=== PATIENT | female | born 1985 | race Asian ===

== ENCOUNTER 2017-04-24 20:24 | Emergency (ER) | payer OTHER ==
[2017-04-24 20:34] VITALS: TEMP 98.4; BMI 37.8
[2017-04-24 20:35] VITALS: BP 147/76; PULSE 90
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
[2017-04-24 22:45] LABS: URINE APPEARANCE Clear; URINE BILIRUBIN Negative (NEGATIVE); URINE BLOOD 3+ (NEGATIVE); URINE GLUCOSE (UA) Negative (NEGATIVE); URINE KETONE Negative (NEGATIVE); URINE LEUK ESTERASE Negative (NEGATIVE); URINE NITRITE Negative (NEGATIVE); URINE PROTEIN Negative (NEGATIVE); URINE UROBILINOGEN 0.2 (0.2-1.0)
[2017-04-24 22:46] LABS: URINE COLOR YELLOW
[2017-04-24 22:52] LABS: URINE BACTERIA FEW /hpf (NEGATIVE); URINE WBC 0-2 (0-5)
[2017-04-24 23:09] LABS: BASO % 1.7 % (0-2.0); MEAN PLT VOLUME 8.9 fl (7.5-11.1)
[2017-04-24 23:17] LABS: EOS % 0.6 % (0-4.5); HEMATOCRIT 41.7 % (32.4-45.2); HEMOGLOBIN 13.9 GM/dl (10.7-15.3); LYMPH % 26.8 % (8-40); MCHC 33.3 g/dl (32.0-36.0); MEAN CELL VOLUME 81.2 fl (80-96); MONO % 4.4 % (3.8-10.2); NEUT % 66.5 % (42.8-82.8); PLATELET COUNT 331 K/MM3 (134-434); RBC 5.14 M/mm3 (3.60-5.2); RDW 12.3 % (11.6-15.6)
[2017-04-24 23:21] LABS: INR 1.15 (0.82-1.09); PROTHROMBIN TIME (PATIENT) 12.8 SEC (10.2-13.0)
[2017-04-24 23:25] LABS: ALBUMIN 4.4 g/dl (3.5-5.0); ALK PHOS 52 U/L (32-92); ANION GAP 7 (8-16); BILIRUBIN,TOTAL 1.2 mg/dl (0.2-1.0); BLOOD UREA NITROGEN 12 mg/dl (7-18); CALCIUM 9.2 mg/dl (8.4-10.2); CHLORIDE 106 mmol/L (98-107); CO2 25 mmol/L (22-28); GLUCOSE,RANDOM 93 mg/dl (74-106); POTASSIUM 4.1 mmol/L (3.5-5.1); SGOT/AST 35 U/L (10-42); SGPT/ALT 38 U/L (10-40); SODIUM 138 mmol/L (136-145); TOT PROT 7.2 g/dl (6.4-8.3)
[2017-04-24 23:40] LABS: CREATININE < 0.8 mg/dl (0.6-1.3)
== END 2017-04-25 03:25 | disposition home or self-care (01) ==
LOC: FER 20:24
DX: R10.9 Unspecified abdominal pain (principal); V43.52XA Car driver injured in collision with other type car in traffic accident, initial encounter; Y93.89 Activity, other specified; Y92.410 Unspecified street and highway as the place of occurrence of the external cause
CPT/HCPCS: 36415; 71046-TC-FY; 73523-TC-FY; 74177-TC; 80053; 81003; 81015; 82550; 82553; 84484; 84702; 84703; 85025; 85610; 99281-25